=== PATIENT | male | born 1995 | race Caucasian/White ===

== ENCOUNTER 2018-08-10 10:59 | Emergency (ER) | payer MEDICAID ==
[~2018-08-10] VITALS: Ht 165.1 cm; Wt 80.0 kg
[2018-08-10 11:14] VITALS: BP 139/77
== END 2018-08-10 14:52 | disposition home or self-care (01) ==
LOC: ER 11:59
DX: K64.4 Residual hemorrhoidal skin tags (principal); F12.10 Cannabis abuse, uncomplicated
CPT/HCPCS: 99282

== ENCOUNTER 2019-12-04 14:00 | Emergency (ER) | payer MEDICAID ==
[~2019-12-04] VITALS: Ht 165.1 cm; Wt 68.0 kg
[2019-12-04 16:32] VITALS: BP 120/61
== END 2019-12-04 16:38 | disposition home or self-care (01) ==
LOC: ER 14:00
DX: J06.9 Acute upper respiratory infection, unspecified (principal); R50.9 Fever, unspecified; R07.81 Pleurodynia; F12.10 Cannabis abuse, uncomplicated
CPT/HCPCS: 71046; 93005; 99283

== ENCOUNTER 2020-09-22 11:21 | Emergency (ER) | payer MEDICAID ==
[~2020-09-22] VITALS: Ht 165.1 cm; Wt 73.0 kg
[2020-09-22 11:23] VITALS: BP 150/87
[2020-09-22 12:21] LABS: CLARITY URINE CLEAR (CLEAR); COLOR URINE YELLOW (YELLOW); KETONES URINE NEGATIVE (NEGATIVE); LEUKOCYTE ESTERASE URINE NEGATIVE (NEGATIVE); NITRITE URINE NEGATIVE (NEGATIVE); OCCULT BLOOD URINE NEGATIVE (NEGATIVE); PH URINE 6.5 (4.5-8.0); PROTEIN URINE NEGATIVE (NEGATIVE); SPECIFIC GRAVITY URINE 1.012 (1.005-1.030); UROBILINOGEN URINE 0.2 E.U./dL (0.2-1.0)
[2020-09-22] MEDS ORDERED: AZITHROMYCIN 500 MG TABLET PO ONE (12:45)
[2020-09-22] MEDS ORDERED: CEFTRIAXONE SODIUM 250 MG/VIAL IM ONE (12:45)
[2020-09-22] MEDS ORDERED: LIDOCAINE HCL 1% 20ML VIAL (Pyxis) INJ INFIL ONE (12:45)
[2020-09-24 09:10] LABS: NEISSERIA GONORRHOEAE NAA Negative (Negative)
== END 2020-09-22 13:04 | disposition home or self-care (01) ==
LOC: ER 11:37
DX: R30.0 Dysuria (principal); Z20.2 Contact with and (suspected) exposure to infections with a predominantly sexual mode of transmission; R03.0 Elevated blood-pressure reading, without diagnosis of hypertension
CPT/HCPCS: 81003; 87491; 87591; 99283; J0696; J3490; Z7610

== ENCOUNTER 2024-02-07 17:41 | Emergency (ER) | payer MEDICAID ==
[~2024-02-07] VITALS: Ht 165.1 cm; Wt 80.0 kg
[2024-02-07 17:53] VITALS: O2SAT 100
[2024-02-07] MEDS ORDERED: AZITHROMYCIN 500 MG TABLET PO ONE (18:45)
[2024-02-07] MEDS ORDERED: CEFTRIAXONE SODIUM 500MG VIAL IM ONE (18:45)
[2024-02-07 19:17] LABS: CLARITY URINE CLEAR (CLEAR); COLOR URINE YELLOW (YELLOW); GLUCOSE URINE NEGATIVE (NEGATIVE); KETONES URINE 2+ (NEGATIVE); LEUKOCYTE ESTERASE URINE NEGATIVE (NEGATIVE); NITRITE URINE NEGATIVE (NEGATIVE); OCCULT BLOOD URINE NEGATIVE (NEGATIVE); PH URINE 5.5 (4.5-8.0); PROTEIN URINE TRACE (NEGATIVE); SPECIFIC GRAVITY URINE 1.028 (1.005-1.030)
[2024-02-07 20:16] LABS: BACTERIA URINE NONE SEEN; RBC URINE 0-2 /hpf (0-2); SQUAMOUS EPITHELIAL CELL URINE NONE SEEN /lpf (RARE/1+); WBC URINE 0-2 /hpf (0-2)
[2024-02-07] MEDS: CEFTRIAXONE SODIUM 500MG VIAL IM ONE (20:53)
[2024-02-07] MEDS: AZITHROMYCIN 500 MG TABLET PO ONE (20:54)
[2024-02-07 21:00] VITALS: BP 139/75; PULSE 61; RESP 20; TEMP 98.1
[2024-02-10 07:11] LABS: CHLAMYDIA TRACHOMATIS NAA Negative (Negative); NEISSERIA GONORRHOEAE NAA Negative (Negative)
== END 2024-02-07 21:30 | disposition home or self-care (01) ==
LOC: ER 17:41
DX: Z20.2 Contact with and (suspected) exposure to infections with a predominantly sexual mode of transmission (principal); F12.90 Cannabis use, unspecified, uncomplicated
CPT/HCPCS: 99283; 87491; 87591; 81003; 96372; J0696